=== PATIENT | female | born 1970 | race Caucasian/White ===

== ENCOUNTER 2016-04-14 18:09 | Emergency (ER) | payer OTHER ==
[2013-09-08 08:01] VITALS: BMI 24.1
[~2016-04-14 18:09] MED LIST: DEPAKOTE500 MG PO; HYDROCODONE-APA1 TAB PO
[2016-04-14 19:13] LABS: HEMATOCRIT 39.8 % (36.0-48.0); HEMOGLOBIN 13.4 g/dL (12-16); MCH 32.6 pg (26.0-34.0); MCHC 33.7 g/dL (31.0-37.0); MCV 96.8 fL (80.0-100.0); MEAN PLATELET VOLUME 10.8 fL (7.4-10.4); RBC 4.11 10x6/uL (4.00-5.40); RDW 12.9 % (11.5-14.5); WBC 4.5 10x3/uL (4.8-10.8)
[2016-04-14 19:15] LABS: PLATELET COUNT 181 10x3/uL (130-400)
[2016-04-14 19:40] LABS: LYMPHOCYTES 46 % (15-50); MONOCYTES 2 % (2-11); NEUTROPHILS 52 % (40-80); PLATELET ESTIMATE NORMAL
[2016-04-14 19:41] LABS: ALBUMIN 4.2 g/dL (3.4-5.0); ALKALINE PHOSPHATASE 45 U/L (46-116); ALT (SGPT) 17 U/L (10-68); BILIRUBIN - TOTAL 0.21 mg/dL (0.2-1.3); CALC OSMOLALITY 279 mosm/kg (275-300); CALCIUM 9.2 mg/dL (8.5-10.1); CHLORIDE - SERUM 103 mmol/L (98-107); CREATININE - SERUM 0.9 mg/dL (0.6-1.3); GLUCOSE 103 mg/dL (74-106); POTASSIUM - SERUM 3.8 mmol/L (3.5-5.1); PROTEIN - SERUM 7.3 g/dL (6.4-8.2); SODIUM 139 mmol/L (136-145); UREA NITROGEN 18 mg/dL (7-18); eGFR NON AFRICAN AMERICAN 72 mL/min (90-120)
[2016-04-14 19:46] LABS: CHOLESTEROL, TOTAL 291 mg/dL (0-200); CKMB 0.7 U/L (0.0-3.6); CREATINE KINASE 91 UL (21-215); HDL CHOLESTEROL 29 mg/dL (32-96)
[2016-04-14 19:48] LABS: TRIGLYCERIDE 563 mg/dL (30-200); TROPONIN-I < 0.017 ng/mL (0.000-0.060)
== END 2016-04-14 21:12 | disposition home or self-care (01) ==
LOC: D.ER 18:09
PROVIDERS: Emergency Medicine Emergency Medical Services
DX: R07.9 Chest pain, unspecified (principal); M79.661 Pain in right lower leg; Z86.79 Personal history of other diseases of the circulatory system; I10 Essential (primary) hypertension; K21.9 Gastro-esophageal reflux disease without esophagitis; F17.200 Nicotine dependence, unspecified, uncomplicated

== ENCOUNTER 2016-04-18 16:46 | Emergency (ER) | payer OTHER ==
[2013-09-08 08:01] VITALS: BMI 24.1
[2016-04-18 18:24] LABS: BASOPHILS 0.5 % (0.0-2.0); EOSINOPHILS 0.3 % (0-7); HEMATOCRIT 43.2 % (36.0-48.0); HEMOGLOBIN 14.9 g/dL (12-16); IMMATURE GRANULOCYTES 0.3 % (0-5); LYMPHOCYTES 24.1 % (15-50); MCH 32.5 pg (26.0-34.0); MCHC 34.5 g/dL (31.0-37.0); MCV 94.1 fL (80.0-100.0); MEAN PLATELET VOLUME 11.1 fL (7.4-10.4); MONOCYTES 18.2 % (2-11); NEUTROPHILS 56.6 % (40-80); PLATELET COUNT 157 10x3/uL (130-400); RBC 4.59 10x6/uL (4.00-5.40); RDW 12.6 % (11.5-14.5)
[2016-04-18 18:32] LABS: APPEARANCE CLEAR (CLEAR); BILIRUBIN NEGATIVE (NEGATIVE); COLOR YELLOW (YELLOW); GLUCOSE NEGATIVE (NEGATIVE); KETONE NEGATIVE (NEGATIVE); LEUKOCYTE ESTERASE NEGATIVE (NEGATIVE); NITRITE NEGATIVE (NEGATIVE); PROTEIN NEGATIVE (NEGATIVE); UROBILINOGEN NORMAL (NORMAL)
[2016-04-18 18:34] LABS: HCG URINE NEGATIVE (NEGATIVE)
[2016-04-18 18:37] LABS: ALBUMIN 4.7 g/dL (3.4-5.0); ANION GAP 14.5 mmol/L (8-16); BILIRUBIN - TOTAL 0.28 mg/dL (0.2-1.3); CALCIUM 9.5 mg/dL (8.5-10.1); CARBON DIOXIDE 27.5 mmol/L (21.0-32.0); CREATININE - SERUM 0.9 mg/dL (0.6-1.3); PROTEIN - SERUM 8.2 g/dL (6.4-8.2)
== END 2016-04-18 20:22 | disposition home or self-care (01) ==
LOC: D.ER 16:46
PROVIDERS: Emergency Medicine
DX: R10.9 Unspecified abdominal pain (principal); I10 Essential (primary) hypertension; K21.9 Gastro-esophageal reflux disease without esophagitis

== ENCOUNTER 2016-05-15 16:52 | Emergency (ER) | payer OTHER ==
[2013-09-08 08:01] VITALS: BMI 24.1
[2016-05-15 19:47] LABS: BASOPHILS 0.8 % (0.0-2.0); EOSINOPHILS 2.4 % (0-7); HEMATOCRIT 40.5 % (36.0-48.0); HEMOGLOBIN 13.8 g/dL (12-16); IMMATURE GRANULOCYTES 0.3 % (0-5); LYMPHOCYTES 21.1 % (15-50); MCH 32.5 pg (26.0-34.0); MCHC 34.1 g/dL (31.0-37.0); MCV 95.5 fL (80.0-100.0); MEAN PLATELET VOLUME 10.9 fL (7.4-10.4); MONOCYTES 19.5 % (2-11); NEUTROPHILS 55.9 % (40-80); PLATELET COUNT 136 10x3/uL (130-400); RBC 4.24 10x6/uL (4.00-5.40); RDW 12.5 % (11.5-14.5); WBC 3.7 10x3/uL (4.8-10.8)
[2016-05-15 20:01] LABS: ANION GAP 12.4 mmol/L (8-16); CALCIUM 9.1 mg/dL (8.5-10.1); CARBON DIOXIDE 27.4 mmol/L (21.0-32.0); POTASSIUM - SERUM 3.8 mmol/L (3.5-5.1)
== END 2016-05-15 21:00 | disposition home or self-care (01) ==
LOC: D.ER 16:52
PROVIDERS: Nurse Practitioner Acute Care
DX: J18.9 Pneumonia, unspecified organism (principal); R07.89 Other chest pain; I10 Essential (primary) hypertension; K21.9 Gastro-esophageal reflux disease without esophagitis; F17.200 Nicotine dependence, unspecified, uncomplicated

== ENCOUNTER → 2016-05-27 11:30 | Outpatient (CLI) | payer OTHER ==
[2013-09-08 08:01] VITALS: BMI 24.1
== END | disposition home or self-care (01) ==
LOC: D.RAD 11:30
DX: R07.81 Pleurodynia (principal)

== ENCOUNTER 2016-06-03 09:47 | Emergency (ER) | payer OTHER ==
[2013-09-08 08:01] VITALS: BMI 24.1
[2016-06-03 10:44] LABS: HEMATOCRIT 38.5 % (36.0-48.0); HEMOGLOBIN 13.6 g/dL (12-16); LYMPHOCYTES 20.8 % (15-50); MCH 32.9 pg (26.0-34.0); MCHC 35.3 g/dL (31.0-37.0); MCV 93.2 fL (80.0-100.0); MEAN PLATELET VOLUME 10.3 fL (7.4-10.4); NEUTROPHILS 54.9 % (40-80); RBC 4.13 10x6/uL (4.00-5.40); RDW 12.3 % (11.5-14.5); WBC 3.6 10x3/uL (4.8-10.8)
[2016-06-03 10:52] LABS: PLATELET COUNT 172 10x3/uL (130-400)
[2016-06-03 10:57] LABS: ALBUMIN 3.8 g/dL (3.4-5.0); ALKALINE PHOSPHATASE 48 U/L (46-116); ALT (SGPT) 13 U/L (10-68); BILIRUBIN - TOTAL 0.28 mg/dL (0.2-1.3); CALC OSMOLALITY 280 mosm/kg (275-300); CALCIUM 8.9 mg/dL (8.5-10.1); CARBON DIOXIDE 24.3 mmol/L (21.0-32.0); CHLORIDE - SERUM 106 mmol/L (98-107); CREATININE - SERUM 0.9 mg/dL (0.6-1.3); GLUCOSE 110 mg/dL (74-106); POTASSIUM - SERUM 4.1 mmol/L (3.5-5.1); SODIUM 141 mmol/L (136-145); UREA NITROGEN 10 mg/dL (7-18); eGFR NON AFRICAN AMERICAN 72 mL/min (90-120)
[2016-06-03 11:08] LABS: CKMB 1.1 U/L (0.0-3.6); CREATINE KINASE 96 UL (21-215); LIPASE 152 U/L (73-393)
[2016-06-03 11:10] LABS: TROPONIN-I < 0.017 ng/mL (0.000-0.060)
== END 2016-06-03 14:30 | disposition home or self-care (01) ==
LOC: D.ER 09:47
PROVIDERS: Emergency Medicine
DX: I71.4 Abdominal aortic aneurysm, without rupture (principal); S29.8XXA Other specified injuries of thorax, initial encounter; W19.XXXA Unspecified fall, initial encounter; R07.89 Other chest pain; Z72.0 Tobacco use; I10 Essential (primary) hypertension; K21.9 Gastro-esophageal reflux disease without esophagitis

== ENCOUNTER 2016-07-27 23:56 | Emergency (ER) | payer OTHER ==
[2013-09-08 08:01] VITALS: BMI 24.1
== END 2016-07-28 03:00 | disposition home or self-care (01) ==
LOC: D.ER 23:56
DX: G40.909 Epilepsy, unspecified, not intractable, without status epilepticus (principal); I10 Essential (primary) hypertension; K21.9 Gastro-esophageal reflux disease without esophagitis

== ENCOUNTER 2016-08-10 17:18 | Emergency (ER) | payer OTHER ==
[2013-09-08 08:01] VITALS: BMI 24.1
== END 2016-08-10 20:16 | disposition home or self-care (01) ==
LOC: D.ER 17:18
DX: S83.92XA Sprain of unspecified site of left knee, initial encounter (principal); X58.XXXA Exposure to other specified factors, initial encounter; K21.9 Gastro-esophageal reflux disease without esophagitis; I10 Essential (primary) hypertension; R56.9 Unspecified convulsions

== ENCOUNTER 2016-08-26 16:21 | Emergency (ER) | payer OTHER ==
[2013-09-08 08:01] VITALS: BMI 24.1
[2016-08-26 17:31] LABS: CALC OSMOLALITY 279 mosm/kg (275-300); CALCIUM 9.4 mg/dL (8.5-10.1); CARBON DIOXIDE 22.8 mmol/L (21.0-32.0); CHLORIDE - SERUM 104 mmol/L (98-107); CREATININE - SERUM 0.7 mg/dL (0.6-1.3); GLUCOSE 103 mg/dL (74-106); POTASSIUM - SERUM 3.7 mmol/L (3.5-5.1); SODIUM 141 mmol/L (136-145); TROPONIN-I < 0.017 ng/mL (0.000-0.060); UREA NITROGEN 9 mg/dL (7-18); eGFR NON AFRICAN AMERICAN > 90 mL/min (90-120)
[2016-08-26 17:47] LABS: BASOPHILS 0.2 % (0-2); EOSINOPHILS 0.4 % (0-7); HEMATOCRIT 45.3 % (36.0-48.0); HEMOGLOBIN 15.4 g/dL (12-16); IMMATURE GRANULOCYTES 0.2 % (0-5); LYMPHOCYTES 23.8 % (15-50); MEAN PLATELET VOLUME 10.9 fL (7.4-10.4); MONOCYTES 14.7 % (2-11); NEUTROPHILS 60.7 % (40-80); PLATELET COUNT 111 10x3/uL (130-400); RBC 4.67 10x6/uL (4.00-5.40); RDW 13.1 % (11.5-14.5); WBC 4.6 10x3/uL (4.8-10.8)
== END 2016-08-26 18:52 | disposition home or self-care (01) ==
LOC: D.ER 16:21
PROVIDERS: Emergency Medicine
DX: J20.9 Acute bronchitis, unspecified (principal); R07.81 Pleurodynia; I10 Essential (primary) hypertension; K21.9 Gastro-esophageal reflux disease without esophagitis; F17.200 Nicotine dependence, unspecified, uncomplicated

== ENCOUNTER → 2016-09-01 13:38 | Outpatient (CLI) | payer OTHER ==
[2013-09-08 08:01] VITALS: BMI 24.1
== END | disposition home or self-care (01) ==
LOC: D.RAD 13:38
DX: M54.2 Cervicalgia (principal); M47.812 Spondylosis without myelopathy or radiculopathy, cervical region; M54.5 Low back pain; M47.817 Spondylosis without myelopathy or radiculopathy, lumbosacral region; M47.897 Other spondylosis, lumbosacral region; M25.561 Pain in right knee; G89.4 Chronic pain syndrome; Z79.891 Long term (current) use of opiate analgesic

== ENCOUNTER 2016-12-03 08:39 | Emergency (ER) | payer OTHER ==
[2013-09-08 08:01] VITALS: BMI 24.1
[2016-12-03 09:04] LABS: BASOPHILS 0.5 % (0-2); EOSINOPHILS 0.3 % (0-7); HEMATOCRIT 41.5 % (36.0-48.0); HEMOGLOBIN 13.8 g/dL (12-16); IMMATURE GRANULOCYTES 0.3 % (0-5); MCH 31.6 pg (26.0-34.0); MCHC 33.3 g/dL (31.0-37.0); MEAN PLATELET VOLUME 10.7 fL (7.4-10.4); MONOCYTES 21.4 % (2-11); NEUTROPHILS 50.5 % (40-80); RBC 4.37 10x6/uL (4.00-5.40); RDW 13.1 % (11.5-14.5); WBC 3.9 10x3/uL (4.8-10.8)
[2016-12-03 09:09] LABS: PLATELET COUNT 157 10x3/uL (130-400)
[2016-12-03 09:31] LABS: ALBUMIN 4.2 g/dL (3.4-5.0); ALKALINE PHOSPHATASE 56 U/L (46-116); ALT (SGPT) 17 U/L (10-68); BILIRUBIN - TOTAL 0.29 mg/dL (0.2-1.3); CALC OSMOLALITY 283 mosm/kg (275-300); CALCIUM 9.2 mg/dL (8.5-10.1); CARBON DIOXIDE 27.3 mmol/L (21.0-32.0); CHLORIDE - SERUM 105 mmol/L (98-107); CREATININE - SERUM 0.8 mg/dL (0.6-1.3); GLUCOSE 100 mg/dL (74-106); PROTEIN - SERUM 7.6 g/dL (6.4-8.2); SODIUM 142 mmol/L (136-145); UREA NITROGEN 15 mg/dL (7-18); eGFR NON AFRICAN AMERICAN 82 mL/min (90-120)
[2016-12-03 09:42] LABS: CKMB 0.2 U/L (0.0-3.6); CREATINE KINASE 90 UL (21-215)
[2016-12-03 09:48] LABS: TROPONIN-I < 0.017 ng/mL (0.000-0.060)
== END 2016-12-03 14:11 | disposition home or self-care (01) ==
LOC: D.ER 08:39
PROVIDERS: Emergency Medicine
DX: R07.9 Chest pain, unspecified (principal); I70.1 Atherosclerosis of renal artery; I10 Essential (primary) hypertension; K21.9 Gastro-esophageal reflux disease without esophagitis; F17.200 Nicotine dependence, unspecified, uncomplicated

== ENCOUNTER 2017-01-09 22:10 | Emergency (ER) | payer OTHER ==
[2013-09-08 08:01] VITALS: BMI 24.1
[2017-02-05 11:38] VITALS: BMI 25.0
== END 2017-01-10 02:38 | disposition home or self-care (01) ==
LOC: D.ER 22:10
DX: G43.909 Migraine, unspecified, not intractable, without status migrainosus (principal); I10 Essential (primary) hypertension; K21.9 Gastro-esophageal reflux disease without esophagitis

== ENCOUNTER 2017-01-14 12:54 | Emergency (ER) | payer OTHER ==
[2013-09-08 08:01] VITALS: BMI 24.1
[2017-01-14 14:41] LABS: CKMB 0.5 U/L (0.0-3.6); CREATINE KINASE 88 UL (21-215)
[2017-01-14 14:58] LABS: TROPONIN-I < 0.017 ng/mL (0.000-0.060)
== END 2017-01-14 15:30 | disposition home or self-care (01) ==
LOC: D.ER 12:54
PROVIDERS: Emergency Medicine
DX: R07.9 Chest pain, unspecified (principal); F17.200 Nicotine dependence, unspecified, uncomplicated; K21.9 Gastro-esophageal reflux disease without esophagitis

== ENCOUNTER 2017-02-03 07:48 | Day surgery (SDC) | payer OTHER ==
[~2017-02-03] VITALS: Ht 165.1 cm; Wt 68.0 kg
[2017-02-03] MEDS ORDERED: TOPROL XL25 MG PO (08:14)
[2017-02-03] MEDS ORDERED: REQUIP4 MG PO (08:15)
[2017-02-03] MEDS ORDERED: ZANTAC150 MG PO (08:16)
[2017-02-03] MEDS ORDERED: PROTONIX40 MG PO (08:16)
[2017-02-03] MEDS ORDERED: ZOFRAN4 MG PO (08:17)
[2017-02-03] MEDS ORDERED: AUGMENTIN 500-11 TA1 PO (08:18)
[2017-02-03] MEDS ORDERED: LIPITOR20 MG PO (08:19)
[2017-02-03] MEDS ORDERED: BAYER CHEWABLE81 MG PO (08:19)
[2017-02-03] MEDS ORDERED: ZANAFLEX4 MG PO (08:20)
[2017-02-03 08:30] VITALS: BP 118/77; Ht 165.1 cm; Wt 68.0 kg
[2017-02-03 10:44] LABS: HEMATOCRIT 34.4 % (36.0-48.0); HEMOGLOBIN 11.3 g/dL (12-16); MCH 30.1 pg (26.0-34.0); MCHC 32.8 g/dL (31.0-37.0); MCV 91.5 fL (80.0-100.0); MEAN PLATELET VOLUME 10.8 fL (7.4-10.4); RBC 3.76 10x6/uL (4.00-5.40); RDW 13.8 % (11.5-14.5); WBC 4.4 10x3/uL (4.8-10.8)
[2017-02-03] MEDS ORDERED: HYDROCODONE-APA1 TAB PO (11:26)
--- NOTE | 2017-02-03 12:00 | NUR ---
1155 - REMOVED 25MG DEMEROL FOR SHAKING, PT CHART SHOWS DEMEROL ALLERGY. FULL 25MG WASTED IN SHARPS, WITNESSED BY ALFRED URRUTIA RN. ATTEMPTED TO DOCUMENT WASTAGE IN PYXIS, WAS ABLE TO CREDIT PT FOR ENTIRE DRUG, BUT WERE NOT ABLE TO DOCUMENT WASTAGE.
--- NOTE | 2017-02-03 12:19 | OP ---
PATIENT NAME: JOSIAS TEE MEDICAL RECORD: [id number] :72 LOCATION:D.OPS ADMISSION DATE: SURGEON: JS BOSCH MD DATE OF OPERATION: 02/03/2017 DATE OF OPERATION: 02/03/2017 PREOPERATIVE DIAGNOSES: 1. Poor venous access. 2. Coronary artery disease. 3. Peripheral vascular disease. 4. Hypertension. 5. Hypercholesterolemia. 6. History of AAA. 7. Tobacco dependence syndrome. POSTOPERATIVE DIAGNOSES: 1. Poor venous access. 2. Coronary artery disease. 3. Peripheral vascular disease. 4. Hypertension. 5. Hypercholesterolemia. 6. History of AAA. 7. Tobacco dependence syndrome. PROCEDURE: Left subclavian vein PowerPort placement with fluoroscopic interpretation. SURGEON: Js Bosch MD REPORT OF PROCEDURE: The patient's left chest was prepped and draped in sterile fashion. A 20 mL of 1% lidocaine with epinephrine was infused into the surrounding tissues. A needle was used to cannulate the left subclavian vein. The guidewire was advanced with ease. Fluoro was used to note that the wire was in good position in the venous system. The skin incision was made on the left superior lateral chest and a subcutaneous pouch was made over the pectoral fascia. The catheter was tunneled between this pouch and the wire exit site. The port was then sutured to the pectoral fascia using interrupted 2-0 Prolenes times 2. The catheter was cut with a beveled tip at 20 cm. The dilator trocar device was placed over the wire and the wire and dilator were removed. The catheter tip was advanced through the trocar and the trocar was removed. The catheter tip rested in good position in the superior vena cava. The catheter aspirated nonpulsatile dark blood and flushed easily with heparinized saline. The subcutaneous tissues were reapproximated with interrupted 3-0 Vicryl and the skin was closed with running subcutaneous 5-0 Monocryl. The wounds were then dressed appropriately. COMPLICATIONS: None. CONDITION: Stable. ANESTHESIA: TIVA and local. BLOOD LOSS: Minimal. OPERATIVE REPORT [id number] JOSIAS TEE TRANSINT:[id number] Voice Confirmation ID: [id number] DOCUMENT ID: [id number] JS BOSCH MD at 1219 CC: LAWRENCE RIDER DO and JOHNNA GAGE MD [id number] DICTATION DATE: 02/03/17 1134 CHIEF OPERATING ENGINEER: 02/03/17 1148 [facility] [address] [place] [address]
--- NOTE | 2017-02-03 13:40 | NUR ---
WHILE REVIEWING DISCHARGE INSTRUCTIONS, PATIENT REPORTS SOME NUMBNESS IN LEFT THUMB AND INTO LEFT FOREARM. CAP REFILL < 3 SECONDS, RADIAL PULSE STRONG AND REGULAR. PATIENT STATES THAT IT HAD NOT FELT LIKE THIS UNTIL NOW. DR BOSCH PAGED
--- NOTE | 2017-02-03 13:44 | NUR ---
DR BOSCH CALLS BACK, REPORT GIVEN TO DR BOSCH ABOUT PATIENT'S NUMBNESS IN LEFT FOREARM. DR BOSCH STATES "I HAD TO GIVE HER MORE LIDOCAINE THAN USUAL WHILE DOING THE PROCEDURE SO THAT WOULD BE EXPECTED." PATIENT INSTRUCTED OF DR BOSCH'S EXPLANATION
--- NOTE | 2017-02-03 13:50 | NUR ---
DISCHARGE INSTRUCTIONS REVIEWED WITH PATIENT. DISCHARGED HOME VIA WHEELCHAIR TO PRIVATE VEHICLE WITH FAMILY
== END 2017-02-03 13:50 | disposition home or self-care (01) ==
LOC: D.OPS 07:48 → D.PAN 10:15 → D.OPS 10:15
PROVIDERS: Anesthesiology
DX: I87.2 Venous insufficiency (chronic) (peripheral) (principal); I25.10 Atherosclerotic heart disease of native coronary artery without angina pectoris; I73.9 Peripheral vascular disease, unspecified; I10 Essential (primary) hypertension; E78.00 Pure hypercholesterolemia, unspecified; I71.4 Abdominal aortic aneurysm, without rupture; F17.200 Nicotine dependence, unspecified, uncomplicated; Z01.812 Encounter for preprocedural laboratory examination

== ENCOUNTER 2017-02-05 11:10 | Outpatient (CLI) | payer OTHER ==
[~2017-02-05] VITALS: Ht 165.1 cm; Wt 68.2 kg
--- NOTE | ~2017-02-05 | HEMODYNAMI ---
PATIENT:JOSIAS TEE MEDICAL RECORD: [id number] : 72 LOCATION:DANDREA ADMISSION DATE: 02/05/17 Generatedon:02/05/201714:27 Patient name: JOSIAS TEE Patient #: [id number] SSN: DO B: 1970 Date of study: 02/05/2017 Page: Of Hemodynamic Procedure Report Patient Data Patient Demographics Procedure consent was obtained First Name: JOSIAS Gender: Female Last Name: RANDAL : 1970 Middle Initial: M Age: 46 year(s) Patient #: [id number] Race: Unknown Additional ID: [id number] Contact details [address]: [address] [address] State: [place] City: [place] Zip code: [address] Past Medical History Allergies Allergen Reaction Date Comments Reported Other allergy 02/05/2017 ZOLOFT, DEMEROL, MORPHINE Admission Admission Data Admission Date: 02/05/2017 Admission Time: 11:10 Height (in.): 5.5 BSA: 0.29 (m2) Height (cm.): 13.97 BMI: 3486.3 (kg/m2) Weight (lbs.): 150 Weight (kg.): 68.04 Lab Results Lab Result Date: 02/05/2017 Lab Result Time: 0:00 Biochemistry Name Units Result Min Max BUN mg/dl 9 --(*---)-- 7 18 Creatinine mg/dl 0.7 --(*---)-- 0.6 1.3 CBC Name Units Result Min Max Hemoglobin g/dl 11.6 *-(----)-- 13.5 17.5 Procedure Procedure Types Cath Procedure Diagnostic Procedure C [facility] w/Coronaries Miscellaneous Procedures Moderate Sedation up to 15 minutes Peripheral Cath Diagnostic Procedure Cath Peripheral Mvkjt-Rbtsoyh-Ofs-Off Procedure Description Procedure Date Procedure Date: 02/05/2017 Procedure Start Time: 14:11 Procedure End Time: 14:26 Procedure Staff Name Function Ric Chan MD Performing Physician Ruby VEGA Scrub Joann Maguire RT Monitor Grayson Roldan RN Nurse Roxanne Dickerson RN Nurse Angella Bowles RT Monitor Procedure Data Cath Procedure Fluoroscopy Diagnostic fluoroscopy Total fluoroscopy Time: 1.4 time: 1.4 min min Diagnostic fluoroscopy Total fluoroscopy dose: 264 dose: 264 mGy mGy Contrast Material Contrast Material Type Amount (ml) Isovue 300 109 Entry Location Entry Primary Successful Side Size Upsize Upsize Entry Closure Succes sful Closure Location (Fr) 1 (Fr) 2 (Fr) Remarks Device Remarks Femoral Right 5 Fr Exoseal artery Estimated blood loss: 10 ml Diagnostic catheters Device Type Used For End Catheter Placement MULTIPACK JL 4.0 5Fr Procedure catheter MULTIPACK 3DRC 5Fr Procedure catheter MULTIPACK Pigtail 5 Fr Procedure catheter Procedure Complications No complications Procedure Medications Medication Administration Route Dosage 0.9% NaCl I.V. 100 ml/hr Oxygen NC 2 l/min Lidocaine 2% added to field 20 Heparin Flush Bag added to field 2 bags (1000units/500ml NS) Versed I.V. 1 mg Fentanyl I.V. 50 mcg Fentanyl I.V. 50 mcg Versed I.V. 1 mg Fentanyl I.V. 50 mcg Fentanyl I.V. 50 mcg Hemodynamics Rest BSA: 0.29 (m2) HGB: 11.6 (g/dl) O2 Consumption: Estimated: 27.11 (ml/min) O2 Con sumption indexed: Estimated:93.48 (ml/min/m) Heart Rate: 54 (bpm) Pressure Samples Time Site Value (mmHg) Purpose Heart Use Rate(bpm) 14:17 AO 141/82(108) Pullback 63 14:17 LV 136/19,34 Pullback 63 Gradients Valve Time Site 1 Site 2 Mean SEP/DFP Peak To Heart Use (mmHg) (sec/min) Peak Rate (mmHg) (bpm) Aortic 14:17 LV AO 0 9 0 63 136/19,34 141/82(108) Calculations Valve P-P Mean Valve Index Valve Source Name Gradient Area Flow (cm2) Aortic 0 0 0 0 Snapshots Pre Cath Intra NCS Post Cath Vital Signs Time Heart Resp SPO2 NIBP Rhythm Pain Sedation Rate (ipm) (%) (mmHg) Status Level (bpm) 13:57:27 71 17 114/74(88) NSR 0 (11) 10(A) , No pain 14:01:33 48 29 100 117/69(99) NSR 0 (11) 10(A) , No pain 14:05:43 55 21 99 113/65(83) NSR 0 (11) 10(A) , No pain 14:09:51 58 17 99 117/62(85) NSR 0 (11) 9(A) , No pain 14:13:59 60 14 100 111/65(87) NSR 0 (11) 9(A) , No pain 14:18:09 64 14 100 105/53(82) NSR 0 (11) 9(A) , No pain 14:22:18 68 14 98 87/48(66) NSR 0 (11) 10(A) , No pain 14:26:20 64 10 99 97/49(76) NSR 0 (11) 10(A) , No pain Medications Time Medication Route Dose Verified Delivered Reason Notes E ffectiveness by by 14:03:54 0.9% NaCl I.V. 100ml/hr Ric Oliveira used for [facility] taker off 14:04:03 Oxygen NC 2 l/min Ric Oliveira Per [facility] RN physician 14:04:11 Lidocaine 2% added 20ml Ric Larios for local to vial [facility] anesthetic field MD KIRBY 14:04:21 Heparin Flush added 2 bags Ric Larios used for Bag to [facility] procedure (1000units/500ml field MD KIRBY NS) 14:04:29 Versed I.V. 1 mg Ric Oliveira for [facility] RN sedation 14:04:36 Fentanyl I.V. 50 mcg Ric Roxanne for [facility] RN sedation 14:11:01 Fentanyl I.V. 50 mcg Ric Roxanne for [facility] RN sedation 14:11:07 Versed I.V. 1 mg Ric Roxanne for [place] Dick[place] RN sedation 14:16:01 Fentanyl I.V. 50 mcg Ric Roxanne for [facility] RN sedation 14:17:46 Fentanyl I.V. 50 mcg Ric Roxanne for [facility] RN sedation Procedure Log Time Note 13:45:42 Ruby Alegria RT(R) sent for patient. Start room use. 13:45:43 Time tracking: Regular hours 13:45:47 Plan of Care:Hemodynamics will remain stable., Cardiac rhythm will remain stable., Comfort level will be maintained., Respiratory function will remain adequate., Patient/ family verbilizes understanding of procedure., Procedure tolerated without complication., Recovers from procedure without complications.. 13:46:56 Patient Height : 5.5 inches 13:47:01 Patient Weight : 150 lbs 13:49:13 Patient received from Pre/Post Procedure Room to CCL 1 Alert and oriented. Tansferred to table in Supine position. 13:49:14 Warm blankets applied, and laya hugger turned on for patient comfort. 13:49:15 Correct patient and procedure confirmed by team. 13:49:16 Signed procedure consent form obtained from patient. 13:49:17 ECG and BP/O2 sat monitors applied to patient. 13:56:28 Vital chart was started 13:58:06 Baseline sample Acquired. 13:58:12 Rhythm: sinus bradycardia 13:58:14 Full Disclosure recording started 13:58:23 H&P Date Dictated: 01/29/2017 Within 30 days and on chart., H&P Addendum completed by physician on day of procedure. (MUST COMPLETE FOR ALL OUTPATIENTS). 13:58:24 Pre-procedure instructions explained to patient. 13:58:25 Pre-op teaching completed and patient verbalized understanding. 13:58:27 Family in patients room. 13:58:30 Patient NPO since Midnight. 13:58:58 Patient allergic to Other allergyZOLOFT, DEMEROL, MORPHINE 13:59:00 Is the patient allergic to Iodine/contrast media? No. 13:59:08 Patient diabetic? No. 13:59:10 Patient not . Patient has had tubal. 13:59:16 Previous problem with sedation/anesthesia? No ? 13:59:17 Snore? No 13:59:18 Sleep apnea? No 13:59:20 Deviated septum? No 13:59:21 Opens mouth fully? Yes 13:59:23 Sticks out tongue? Yes 13:59:27 Airway obstruction? Yes COPD 13:59:31 Dentures? Yes IN TIGHT 13:59:37 Pre procedure: right dorsailis pedis pulse 2+ Normal; easily identifiable; not easily obliterated 13:59:40 Patient pain scale 0/10 ?. 13:59:47 IV patent on arrival in port with 0.9% NaCl at O. 14:02:00 Lab Result : BUN 9 mg/dl 14:02:00 Lab Result : Creatinine 0.7 mg/dl 14:02:00 Lab Result : Hemoglobin 11.6 g/dl 14:02:04 Lab results completed and on chart. 14:02:16 Bilateral groins area was prepped with chlora-prep and draped in sterile fashion 14:02:18 Alarms reviewed by R. N. 14:02:18 Sharps counted by scrub and verified by R.N. 14:02:53 --------ALL STOP TIME OUT------ 14:02:54 Final Timeout: patient, procedure, and site verified with staff and physician. All members of the team are in agreement. 14:02:56 Bilateral groins site verified by team. 14:02:58 Physical assessment completed. ASA score P 2 - A patient with mild systemic disease as per Ric Chan MD. 14:03:02 Sedation plan: IV Moderate Sedation Medication:Versed, Fentanyl 14:03:54 0.9% NaCl 100ml/hr I.V. was administered by Roxanne Dickerson RN; used for procedure; 14:04:03 Oxygen 2 l/min NC was administered by Roxanne Dickerson RN; Per physician; 14:04:11 Lidocaine 2% 20ml vial added to field was administered by Ric Chan MD; for local anesthetic; 14:04:21 Heparin Flush Bag (1000units/500ml NS) 2 bags added to field was administered by Ric Chan MD; used for procedure; 14:04:29 Versed 1 mg I.V. was administered by Roxanne Dickerson RN; for sedation; 14:04:36 Fentanyl 50 mcg I.V. was administered by Roxanne Dickerson RN; for sedation; 14:05:10 Use device set Femoral Dx 14:05:13 ACIST Syringe (25621) opened to sterile field. 14:05:13 Bag Decanter () opened to sterile field. 14:05:16 Tegaderm 4 x 4 (1626W) opened to sterile field. 14:05:17 ACIST Manifold (43012) opened to sterile field. 14:05:17 ACIST Hand Control (59132) opened to sterile field. 14:05:20 Medline Cath Pack ([id number]) opened to sterile field. 14:05:21 SHEATH 5FR [place] (BZI222) opened to sterile field. 14:05:22 DIAGNOSTIC WIRE .035 260cm J wire (339270) opened to sterile field. 14:05:24 DIAGNOSTIC Multipack 5Fr catheter set ([id number]) opened to sterile field. 14:07:05 Zero performed for pressure channel P1 14:10:41 Procedure started. 14:11:01 Fentanyl 50 mcg I.V. was administered by Roxanne Dickerson RN; for sedation; 14:11:07 Versed 1 mg I.V. was administered by Roxanne Dickerson RN; for sedation; 14:11:17 Local anesthetic to right femoral artery with Lidocaine 2% by Ric Chan MD.INITIAL ACCESS ONLY 14:12:29 A 5 Fr sheath was inserted into the Right Femoral artery 14:13:14 A MULTIPACK JL 4.0 5Fr catheter was advanced over the wire and used for Procedure. 14:13:49 LCA angiography performed. 14:14:24 Catheter removed. 14:14:42 A MULTIPACK 3DRC 5Fr catheter was advanced over the wire and used for Procedure. 14:15:18 RCA angiography performed. 14:15:36 Catheter removed. 14:15:41 Zero performed for pressure channel P1 14:16:01 Fentanyl 50 mcg I.V. was administered by Roxanne Dickerson RN; for sedation; 14:16:11 A MULTIPACK Pigtail 5 Fr catheter was advanced over the wire and used for Procedure. 14:16:40 LV gram done using WOODS 14:16:42 LV hemodynamics recorded. 14:16:45 Injector settings: Ml/sec: 10, Volume: 20, 14:17:33 EF : 55 % 14:17:46 Fentanyl 50 mcg I.V. was administered by Roxanne Dickerson RN; for sedation; 14:18:17 Pigtail used for AFRO 14:18:21 Abdominal angiogram w/ runoff was performed. 14:18:28 Left leg runoff performed. 14:18:57 Right leg runoff performed. 14:19:17 Catheter removed. 14:19:33 EXOSEAL 5Fr (EX500) opened to sterile field. 14:19:43 Sheath removed intact; hemostasis achieved with Exoseal to the Right Femoral artery. 14:19:45 Procedure ended.(Physican Out) 14:19:54 Fluoroscopy time 01.40 minutes. 14:19:59 Fluoroscopy dose: 264 mGy 14:19:59 Flurop Dose total: 264 14:20:03 Contrast amount:Isovue 300 109ml. 14:20:05 Sharps counted by scrub and verified by R.N. 14:20:43 Insertion/operative site no bleeding no hematoma. 14:20:47 Post-op/insertion site Right Femoral artery dressed using a 4 x 4 and Tegaderm. 14:20:52 Post-procedure physical assessment completed. ASA score P 2 - A patient with mild systemic disease as per Ric Chan MD. 14:21:17 Post procedure rhythm: sinus rhythm 14:21:26 Estimated blood loss: 10 ml 14:21:27 Post procedure instruction explained to patient.Patient verbalizes understanding. 14:21:28 Patient needs reinforcement of post procedure teaching. 14:22:22 Procedure and supply charges have been captured, reviewed, submitted and are correct. 14:22:26 Procedure Complication : No complications 14:26:14 Vital chart was stopped 14:26:14 See physician's report for complete and final results. 14:26:16 Report given to Pre/Post Procedure Room. 14:26:20 Patient transfered to Pre/Post Procedure Room with Bed. 14:26:24 Procedure ended. 14:26:24 Full Disclosure recording stopped 14:26:28 End room use (Document Last) Device Usage Item Name Manufacture Quantity Catalog Hospital Part Current Minimal L ot# / Number Charge Number Stock Stock Serial# Code ACIST Acist 1 72108 [id number] 109155 814518 20 Syringe Medical (50367) Systems Inc Bag Microtek 1 2001S 452906 31525 531626 5 Decanter Medical Inc. () Tegaderm 4 3M 1 1626W 007027 424261 335280 5 x 4 (1626W) ACIST Acist 1 72158 369764 064619 459859 5 Manifold Medical (03578) Systems Inc ACIST Hand Acist 1 75175 950129 589649 763592 5 Control Medical (05841) Systems Inc Medline Cardinal 1 [id number] 724057 27463 334303 5 Cath Pack Health ([id number]) SHEATH 5FR Terumo 1 QWZ356 440424 286766 333300 40 [place] (OKI504) DIAGNOSTIC St Shay 1 598267 948525 512795 047878 30 WIRE .035 260cm J wire (200546) DIAGNOSTIC Cardinal 1 IH9332 424016 17608 551436 30 Multipack Health 5Fr catheter set (LM6238) MULTIPACK Cardinal 1 115105 5 JL 4.0 5Fr Health catheter MULTIPACK Cardinal 1 939052 5 3DRC 5Fr Health catheter MULTIPACK Cardinal 1 345875 5 Pigtail 5 Health Fr catheter EXOSEAL 5Fr Cardinal 1 EX500 805044 540232 311564 10 (EX500) Health Signature Audit [place] Stage Time Signature Unsigned Intra-Procedure 02/05/2017 Angella Bowles 2:27:01 PM RT(R) Signatures Monitor : Joann Maguire Signature : RT Date : Time : Monitor : Angella Bowles Signature : RT Date : Time : [address] [place] [address]
[~2017-02-05 11:10] MED LIST changes: +AUGMENTIN 500-11 TA1 PO; +BAYER CHEWABLE81 MG PO; +LIPITOR20 MG PO; +PROTONIX40 MG PO; +REQUIP4 MG PO; +TOPROL XL25 MG PO; +ZANAFLEX4 MG PO; +ZANTAC150 MG PO; +ZOFRAN4 MG PO
[2017-02-05 11:38] VITALS: BP 116/64; Ht 165.1 cm; Wt 68.2 kg
[2017-02-05 11:53] LABS: BASOPHILS 0.5 % (0-2); EOSINOPHILS 0 % (0-7); HEMATOCRIT 34.9 % (36.0-48.0); HEMOGLOBIN 11.6 g/dL (12-16); LYMPHOCYTES 34.1 % (15-50); MCH 30.3 pg (26.0-34.0); MCHC 33.2 g/dL (31.0-37.0); MCV 91.1 fL (80.0-100.0); MEAN PLATELET VOLUME 10.3 fL (7.4-10.4); MONOCYTES 27.3 % (2-11); NEUTROPHILS 38.1 % (40-80); PLATELET COUNT 116 10x3/uL (130-400); RBC 3.83 10x6/uL (4.00-5.40); RDW 13.5 % (11.5-14.5); WBC 3.8 10x3/uL (4.8-10.8)
[2017-02-05 12:16] LABS: CALC OSMOLALITY 274 mosm/kg (275-300); CALCIUM 8.6 mg/dL (8.5-10.1); CARBON DIOXIDE 26.2 mmol/L (21.0-32.0); CHLORIDE - SERUM 104 mmol/L (98-107); CREATININE - SERUM 0.7 mg/dL (0.6-1.3); GLUCOSE 99 mg/dL (74-106); SODIUM 138 mmol/L (136-145); UREA NITROGEN 9 mg/dL (7-18); eGFR NON AFRICAN AMERICAN > 90 mL/min (90-120)
--- NOTE | 2017-02-05 14:50 | NUR ---
ROOM AIR, NO RESP DISTRESS. RIGHT GROIN 5F EXOSEAL CDI, NO BLEEDING OR HEMATOMA NOTED. VSS. NO C/O PAIN OR NAUSEA. FAMILY AT BEDSIDE, CALL LIGHT WITHIN REACH.
--- NOTE | 2017-02-05 15:20 | NUR ---
RIGHT GROIN 5F EXOSEAL CDI, NO BLEEDING OR HEMATOMA NOTED. ROOM AIR, NO RESP DISTRESS. NO C/O PAIN OR NAUSEA. VSS. FAMILY AT BEDSIDE. WILL CONTINUE TO MONITOR CLOSELY.
--- NOTE | 2017-02-05 16:01 | NUR ---
HOB ELEVATED 30 DEGREES. DRINK AND SANDWICH TRAY GIVEN. NO C/O NAUSEA OR PAIN. VSS. WILL CONTINUE TO MONITOR.
--- NOTE | 2017-02-05 16:15 | NUR ---
LEFT CHEST PORT NEEDLE REMOVED, BAND AID TO SITE. UP TO BEDSIDE TO GET DRESSED.
--- NOTE | 2017-02-05 16:22 | NUR ---
AMBULATED TO RESTROOM TO VOID.
--- NOTE | 2017-02-05 16:28 | NUR ---
DISCHARGE INSTRUCTIONS GIVEN, VERBALIZED UNDERSTANDING.
--- NOTE | 2017-02-05 16:35 | NUR ---
TAKEN OUT VIA WHEELCHAIR BY CATH METAL TESTER. LEFT FACILITY WITH FAMILY AND ALL PERSONAL BELONGINGS.
--- NOTE | 2017-02-11 12:19 | OP ---
PATIENT NAME: JOSIAS TEE MEDICAL RECORD: [id number] :72 LOCATION:D.CAT ADMISSION DATE: SURGEON: JOHNNA GAGE MD DATE OF OPERATION: 02/05/2017 PROCEDURE: Left heart catheterization, selective coronary angiography, as well as aortofemoral runoff performed via right femoral approach. CATHETERS: A 5-Sudanese sheath, 5/4 left and right Karina, 5/4 pig. The procedure was well tolerated and the patient returned to the bangura, sheath removed. ExoSeal device was placed. FINDINGS: Left ventriculography in the 30-degree [place] view: Normal wall motion, normal systolic function. CORONARY ANATOMY: 1. Left main: Left main is free of disease. 2. LAD: Free of disease in the diagonal system. 3. Circumflex: Free of disease in the marginal system. 4. Right coronary artery: Dominant artery, gives rise to PDA, free of disease. At the end of the procedure, the catheter was pulled. Abdominal aortic runoff was performed. FINDINGS: Abdominal aorta shows no evidence of aneurysmal dilatation. RIGHT SYSTEM: Right iliac systems smooth-walled, free of disease. Right deep superficial and common femoral artery are free of disease with good two-vessel runoff distally. LEFT SYSTEM: Left iliac system is small vessel, free of disease. Left superficial common deep femoral system overall free of disease with good two-vessel runoff distally. IMPRESSION: Normal left ventricular systolic function, normal coronary anatomy. TRANSINT:[id number] Voice Confirmation ID: [id number] DOCUMENT ID: [id number] JOHNNA GAGE MD at 1219 CC: [id number] DICTATION DATE: 02/05/17 1434 CATTLE RANCHER: 02/05/17 1546 DEP CLI 02/05/17 [place] [id number] [place] [id number]
== END 2017-02-05 16:35 | disposition home or self-care (01) ==
LOC: D.CATH 11:10
PROVIDERS: Internal Medicine Interventional Cardiology
DX: I20.9 Angina pectoris, unspecified (principal); I73.9 Peripheral vascular disease, unspecified; Z01.812 Encounter for preprocedural laboratory examination

== ENCOUNTER → 2017-08-14 15:55 | Outpatient (CLI) | payer OTHER ==
[2017-02-05 11:38] VITALS: BMI 25.0
== END | disposition home or self-care (01) ==
LOC: D.US 15:55
DX: R79.1 Abnormal coagulation profile (principal)

== ENCOUNTER → 2017-11-26 10:13 | Outpatient (CLI) | payer OTHER ==
[2017-02-05 11:38] VITALS: BMI 25.0
[2017-11-27 10:19] LABS: IMMUNOGLOBULIN A 100 mg/dL (87-352); IMMUNOGLOBULIN G 762 mg/dL (700-1600); IMMUNOGLOBULIN M 58 mg/dL (26-217)
[2017-11-30 16:11] LABS: IMMUNOGLOBULIN E 2 IU/mL (0-100)
== END | disposition home or self-care (01) ==
LOC: D.RT 10:00
PROVIDERS: Internal Medicine Pulmonary Disease
DX: R06.09 Other forms of dyspnea (principal)

== ENCOUNTER 2019-09-14 17:26 | Observation (INO) | payer MEDICARE, MEDICAID ==
[~2019-09-14] VITALS: Ht 165.1 cm; Wt 62.6 kg
--- NOTE | ~2019-09-14 | HEMODYNAMI ---
PATIENT:JOSIAS TEE MEDICAL RECORD: [id number] : 72 [id number] ADMISSION DATE: 09/15/19 Generatedon:09/15/201912:27 Patient name: JOSIAS TEE Patient #: [id number] SSN: [id number] : 1970 Date of study: 09/15/2019 Page: Of Hemodynamic Procedure Report Patient Data Patient Demographics Procedure consent was obtained First Name: JOSIAS Gender: Female Last Name: RANDAL : 1970 Middle Initial: M Age: 49 year(s) Patient #: [id number] Race: Unknown SSN: [id number] Additional ID: [id number] Contact details [address]: [address] [place] [address] State: [place] City: [place] Zip code: [address] Past Medical History Allergies Allergen Reaction Date Comments Reported Other allergy 02/05/2017 ZOLOFT, DEMEROL, MORPHINE Other allergy 09/15/2019 Xoloft, Flu, Morphine Admission Admission Data Admission Date: 09/15/2019 Admission Time: 9:24 Arrival Date: 09/15/2019 Arrival Time: 0:00 Admit Source: Other Insurance Payor: Medicare Room #: D.2114 [facility] #: [id number] Height (in.): 64.96 BSA: 1.68 (m2) Height (cm.): 165 BMI: 22.77 (kg/m2) Weight (lbs.): 136.69 Weight (kg.): 62 Lab Results Lab Result Date: 09/15/2019 Lab Result Time: 0:00 Biochemistry Name Units Result Min Max BUN mg/dl 10 --(-*--)-- 7 18 Creatinine mg/dl 1 --(--*-)-- 0.6 1.3 eGFR ml/min 63 *-(----)-- 90 120 NONAFRICAN CBC Name Units Result Min Max Hemoglobin g/dl 11.6 *-(----)-- 13.5 17.5 Procedure Procedure Types Cath Procedure Diagnostic Procedure [facility] w/Coronaries Sedation Charges Moderate Sedation up to 15 minutes Procedure Description Procedure Date Procedure Date: 09/15/2019 Procedure Start Time: 12:09 Procedure End Time: 12:25 Procedure Staff Name Function Kinza Morris MD Performing Physician Joann Maguire RT Monitor James Moncada RN Nurse Daphney Bourgeois RT Scrub Indication Chest pain Procedure Data Cath Procedure Fluoroscopy Diagnostic fluoroscopy Total fluoroscopy Time: 1.2 time: 1.2 min min Diagnostic fluoroscopy Total fluoroscopy dose: 137 dose: 137 mGy mGy Contrast Material Contrast Material Type Amount (ml) Isovue 300 20 Entry Location Entry Primary Successful Side Size Upsize Upsize Entry Closure May ccessful Closure Location (Fr) 1 (Fr) 2 (Fr) Remarks Device Remarks Radial Right 6 Fr Mechanical artery Short Compression Estimated blood loss: 10 ml Diagnostic catheters Device Type Used For End Catheter Placement DIAGNOSTIC Chitina 110cm 5 Procedure Fr catheter ([id number]) Procedure Complications No complications Procedure Medications Medication Administration Route Dosage 0.9% NaCl I.V. 100 ml/hr Oxygen etCO2 Nasal cannula 2 l/min Heparin Flush Bag added to field 2 bags (1000units/500ml NS) Lidocaine 2% added to field 20 Radial Cocktail added to field 1 syringe (Verapamil 2mg/Nitro 400mcg/Heparin 1500units) Benadryl I.V. 50 mg Plavix P.O. 300 mg Ativan I.V. 0.5 mg Radial Cocktail I.A. 1 syringe (Verapamil 2mg/Nitro 400mcg/Heparin 1500units) Hemodynamics Rest BSA: 1.68 (m2) HGB: 11.6 (g/dl) O2 Consumption: Estimated: 156.57 (ml/min) O2 Co nsumption indexed: Estimated:93.2 (ml/min/m) Heart Rate: 56 (bpm) Pressure Samples Time Site Value (mmHg) Purpose Heart Use Rate(bpm) 12:19 LV 119/-10,15 Snapshot 67 12:20 AO 105/69(86) Pullback 71 12:20 LV 106/14,16 Pullback 71 Gradients Valve Time Site 1 Site 2 Mean SEP/DFP Peak To Heart Use (mmHg) (sec/min) Peak Rate (mmHg) (bpm) Aortic 12:20 LV AO 1 71 106/14,16 105/69(86) Calculations Valve P-P Mean Valve Index Valve Source Name Gradient Area Flow (cm2) Aortic 1 1 Snapshots Pre Cath Intra NCS Post Cath Vital Signs Time Heart Resp SPO2 etCO2 NIBP (mmHg) Rhythm Pain Sedation Rate (ipm) (%) (mmHg) Status Level (bpm) 11:57:29 57 15 100 37.6 128/77(92) NSR 0 (11) 10(A) , No pain 12:02:37 61 10 100 36.1 152/76(119) NSR 0 (11) 10(A) , No pain 12:06:53 61 11 100 42.9 162/75(112) NSR 0 (11) 10(A) , No pain 12:11:15 58 13 100 23.3 141/71(94) NSR 0 (11) 10(A) , No pain 12:15:27 55 13 100 36.1 147/73(105) NSR 0 (11) 10(A) , No pain 12:19:43 68 13 30.8 118/68(84) NSR 0 (11) 10(A) , No pain 12:23:49 61 18 100 38.3 113/67(77) NSR 0 (11) 10(A) , No pain Medications Time Medication Route Dose Verified Delivered Reason Notes Effectiveness by by 12:06:13 0.9% NaCl I.V. 100 James James Per ml/hr Antwan Moncada physician RN RN 12:06:22 Oxygen etCO2 2 l/min James James for low 02 Nasal Lorigan Lorigan sats cannula RN RN 12:06:32 Heparin Flush added 2 bags Ajmes James used for Bag to Lorigan Lorigan procedure (1000units/500ml field RN RN NS) 12:06:50 Lidocaine 2% added 20ml James James for local to vial Lorigan Lorigan anesthetic field RN RN 12:07:02 Radial Cocktail added 1 James James used for (Verapamil to syringe Lorigan Lorigan procedure 2mg/Nitro field RN RN 400mcg/Heparin 1500units) 12:07:16 Benadryl I.V. 50 mg James Jamse Per Antwan Moncada physician RN RN 12:07:30 Plavix P.O. 300 mg James James for Lorigan Lorigan antiplatelet RN RN therapy 12:08:05 Ativan I.V. 0.5 mg James Ramirez for sedation Antwan Moncada RN RN 12:18:08 Radial Cocktail I.A. 1 James Echols for (Verapamil syringe Antwan Morris MD vasodilation 2mg/Nitro RN 400mcg/Heparin 1500units) Procedure Log Time Note 11:48:06 Arrival Date: 09/15/2019 12:00:00 AM 11:48:09 Admit Source: Other 11:48:38 Insurance Payor : Medicare 11:49:11 Patient Height : 64.96 inches 11:49:15 Patient Weight : 136.69 lbs 11:49:50 Lab Result : BUN 10 mg/dl 11:49:50 Lab Result : Hemoglobin 11.6 g/dl 11:49:50 Lab Result : eGFR NONAFRICAN 63 ml/min 11:49:50 Lab Result : Creatinine 1 mg/dl 11:50:22 Diagnostic Cath Status : Elective 11:51:01 Indication : Chest pain 11:51:15 Procedure Status Urgent Heart Cath (IP). 11:51:45 James Moncada RN sent for patient. Start room use. 11:51:46 Time tracking: Regular hours (M-F 7:00 - 5:00) 11:51:52 Plan of Care:Hemodynamics will remain stable., Cardiac rhythm will remain stable., Comfort level will be maintained., Respiratory function will remain adequate., Patient/ family verbilizes understanding of procedure., Procedure tolerated without complication., Recovers from procedure without complications.. 11:51:59 Patient received from Med II to CCL 2 Alert and oriented. Tansferred to table in Supine position. 11:52:01 Signed procedure consent form obtained from patient. 11:52:03 Warm blankets applied, and laya hugger turned on for patient comfort. 11:52:05 Correct patient and procedure confirmed by team. 11:52:39 H&P Date Dictated: 09/15/2019 Within 30 days and on chart., H&P Addendum completed by physician on day of procedure. (MUST COMPLETE FOR ALL OUTPATIENTS). 11:52:41 Pre-procedure instructions explained to patient. 11:52:50 Family unavailable. 11:52:57 Patient NPO since Midnight. 11:53:28 Patient allergic to Other allergyXoloft, Flu, Morphine 11:53:31 Is the patient allergic to Iodine/contrast media? No. 11:53:32 Was the patient premedicated? Yes 11:53:42 HCG/Urine : completed and on chart, negative 11:53:44 Patient not . Patient has had hysterectomy. 11:53:47 Is patient on blood thinner?No 11:53:49 Patient diabetic? No. 11:53:52 Snore? Yes 11:53:54 Sleep apnea? No 11:54:00 Dentures? Yes in tight 11:54:25 Patient pain scale 3/10 ?. 11:54:38 IV patent on arrival in left forearm with 0.9% NaCl at [facility]. 11:54:41 Lab results completed and on chart. 11:54:44 Right Radial & Right Groin area was prepped with chlora-prep and draped in sterile fashion 11:54:45 Alarms reviewed by R. N. 11:54:46 Sharps counted by scrub and verified by R.N. 11:56:21 ECG and BP/O2 sat monitors applied to patient. 11:56:23 Vital chart was started 11:56:24 Baseline sample Acquired. 11:56:25 Full Disclosure recording started 11:56:34 Use device set Radial Dx or PCI 11:56:37 ACIST Syringe (77369) opened to sterile field. 11:56:38 Medline Cath Pack ([id number]) opened to sterile field. 11:56:38 Bag Decanter (2001S) opened to sterile field. 11:56:39 ACIST Hand Control (24028) opened to sterile field. 11:56:39 ACIST Manifold (88642) opened to sterile field. 11:56:40 Tegaderm 4 x 4 (1626W) opened to sterile field. 11:56:42 MBrace Wrist Support ([id number]) opened to sterile field. 11:56:45 EMERALD Guide Wire (639-409) opened to sterile field. 11:56:46 SHEATH 6FR RAIN ([id number]) opened to sterile field. 11:58:23 Physician arrived 12:01:29 Is patient on blood thinner?Yes 12:01:32 ACC The patient was administered the following blood thiners within the last 24 hours: ACCPlavix 12:02:32 --------ALL STOP TIME OUT------ 12::32 Final Timeout: patient, procedure, and site verified with staff and physician. All members of the team are in agreement. 12:02:36 Right Radial & Right Groin site verified by team. 12:02:39 Fire Safety Assessment: A--An alcohol-based skin anteseptic being used preoperatively., C--Open oxygen or nitrous oxide is being used., D--An ESU, laser, or fiber-optic light is being used. 12:02:43 Physical assessment completed. ASA score P 3 - A patient with severe systemic disease as per Kinza Morris MD. 12:02:46 2) 60-89 Mildly reduced kidney function, and other findings (as for stage 1) point to kidney disease. 12:02:49 Maximum allowable contrast dose (3.7 X eGFR X 0.75)197 ml. 12:02:54 Sedation plan: IV Moderate Sedation Medication:Versed, Fentanyl 12:06:13 0.9% NaCl 100 ml/hr I.V. was administered by aJmes Moncada RN; Per physician; Verbal order read back and verified. 12:06:22 Oxygen 2 l/min etCO2 Nasal cannula was administered by James Moncada RN; for low 02 sats; Verbal order read back and verified. 12:06:32 Heparin Flush Bag (1000units/500ml NS) 2 bags added to field was administered by James Moncada RN; used for procedure; Verbal order read back and verified. 12:06:50 Lidocaine 2% 20ml vial added to field was administered by James Moncada RN; for local anesthetic; Verbal order read back and verified. 12:07:02 Radial Cocktail (Verapamil 2mg/Nitro 400mcg/Heparin 1500units) 1 syringe added to field was administered by James Moncada RN; used for procedure; Verbal order read back and verified. 12:07:16 Benadryl 50 mg I.V. was administered by James Moncada RN; Per physician; Verbal order read back and verified. 12:07:30 Plavix 300 mg P.O. was administered by James Moncada RN; for antiplatelet therapy; Verbal order read back and verified. 12:08:05 Ativan 0.5 mg I.V. was administered by James Moncada RN; for sedation; Verbal order read back and verified. 12:08:45 Procedure started. 12:09:06 Local anesthetic to right radial artery with Lidocaine 2% by Kinza Morris MD.INITIAL ACCESS ONLY 12:16:25 A 6 Fr Short sheath was inserted into the Right Radial artery 12:16:35 J wire advanced. 12:17:00 A DIAGNOSTIC Chitina 110cm 5 Fr catheter (281975) was advanced over the wire and used for Procedure. 12:17:03 LV angiography performed. 12:18:08 Radial Cocktail (Verapamil 2mg/Nitro 400mcg/Heparin 1500units) 1 syringe I.A. was administered by Kinza Morris MD; for vasodilation; Verbal order read back and verified. 12:19:42 LV gram done using WOODS 12:20:34 EF : 65 % 12:20:50 RCA angiography performed. 12:21:01 LCA angiography performed. 12:21:18 Catheter removed. 12:21:24 ZEPHYR REGULAR TR BAND (995183) opened to sterile field. 12:21:53 Sheath removed intact; hemostasis achieved with Mechanical Compression to the Right Radial artery. 12:21:56 Procedure ended.(Physican Out) 12:22:06 Fluoroscopy time 01.20 minutes. 12:22:12 Fluoroscopy dose: 137 mGy 12:22:12 Flurop Dose total: 137 12:22:48 Dose Area Product 30787 mGy/cm. 12:22:56 Contrast amount:Isovue 300 20ml. 12:22:58 Maximum allowable dose exceeded? No. 12:22:59 Sharps counted by scrub and verified by R.N. 12:23:08 [place] band inflated with 10cc of air. 12:23:10 Insertion/operative site no bleeding no hematoma. 12:23:19 Post-op/insertion site Right Radial artery dressed using a 4 x 4 and Tegaderm. 12:23:26 Post Procedure Pulses reassessed and unchanged 12:23:30 Post-procedure physical assessment completed. ASA score P 2 - A patient with mild systemic disease as per Kinza Morris MD. 12:23:34 Post procedure rhythm: sinus rhythm 12:23:36 Estimated blood loss: 10 ml 12:23:38 Post procedure instruction explained to patient.Patient verbalizes understanding. 12:24:37 Procedure type changed to Cath procedure, Diagnostic procedure, LHC, LHC w/Coronaries, Sedation Charges, Moderate Sedation up to 15 minutes 12:24:38 Procedure and supply charges have been captured, reviewed, submitted and are correct. 12:25:01 Procedure Complication : No complications 12:25:03 Vital chart was stopped 12:25:04 [facility] Findings: mild to moderate CAD (<70%) 12:25:07 Operative report dictated upon procedure completion. 12:25:10 Report given to Med II. 12:25:16 Patient transfered to Med II with Stretcher. 12:25:19 Procedure ended. 12:25:19 Full Disclosure recording stopped 12:25:25 End room use (Document Last) Device Usage Item Name Manufacture Quantity Catalog Hospital Part Current Minima l Lot# / Number Charge Number Stock Stock Serial# Code ACIST Acist 1 27134 899006 [id number] [id number] 20 Syringe Medical (43019) Systems Inc Medline Medline 1 [id number] 140798 86268 290516 5 Cath Pack (KLEY33319) Bag Microtek 1 616761 48723 750220 5 Decanter Medical Inc. () ACIST Hand Acist 1 95676 818176 245133 443466 5 Control Medical (12696) Systems Inc ACIST Acist 1 65780 348522 832057 691328 5 Manifold Medical (24453) Systems Inc Tegaderm 4 3M 1 1626W [id number] 708178 188550 5 x 4 (1626W) MBrace Advanced 1 140-0250-00 942661 42893 151243 5 Wrist Vascular Support Dynamics (108453583) EMERALD Cardinal 1 502-455 668583 367231 154267 5 Guide Wire Health (742-455) SHEATH 6FR Cardinal 1 [id number] 975483 5307069 735092 5 [facility] (0213019) DIAGNOSTIC Terumo 1 405013 667478 839432 179486 5 Chitina 110cm 5 Fr catheter (681889) ZEPHYR Cardinal 1 819985 570906 3949873 364968 5 REGULAR TR Health BAND (016554) Signature Audit [place] Stage Time Signature Unsigned Intra-Procedure 09/15/2019 Joann Maguire 12:26:05 PM RT(R) Intra-Procedure 09/15/2019 James 12:27:09 PM Lorigan RN Intra-Procedure 09/15/2019 Kinza Morris MD 12:27:40 PM Signatures Performing Physician : Signature : Kinza Morris MD Date : Time : Monitor : Joann Andrez Signature : RT Date : Time : Nurse : James Lorigan Signature : RN Date : Time : [facility] [address] [place] [address]
--- NOTE | ~2019-09-14 | EC ---
PATIENT:JOSIAS TEE DATE OF SERVICE: 09/14/19 SEX: F MEDICAL RECORD: [id number] DATE OF : 72 LOCATION:D. D.211 AGE OF PATIENT: 49 ADMISSION DATE: 09/14/19 REFERRING PHYSICIAN: INTERPRETING PHYSICIAN: NIRAV ECHOLS MD ECHOCARDIOGRAM REPORT ECHO CHARGES 4 ECHO COMPLETE Date: 09/15/19 CLINICAL DIAGNOSIS: DYSPNEA ECHOCARDIOGRAPHIC MEASUREMENTS (adult normal given) AC root (d.<3.7cm) 2.4 cm LV Septum d (<1.2 cm> 0.6 cm Valve Excursion 1.6 cm LV Septum (systole) 0.9 cm Left Atria (s.<4.0cm> 3.2 cm LVPW d(<1.2cm) 0.6 cm RV (d.<2.3cm) 2.5 cm LVPW (sytole) 1.1 cm LV diastole(<5.6CM) 4.7 cm MV E-F(>70mm/sec) cm LV systole 2.7 cm LVOT Diameter 1.7 cm MV exc.(>10mm) cm Est.ejection fraction (50-75%) % DOPPLER: LVIT cm/sec A 62 cm/sec E 81 cm/sec LA cm/sec RVSP 19.1 mmHg LVOT 83 cm/sec AOP1/2T m/s Asc. Ao 104 cm/sec RVOT 54 cm/sec RA cm/sec PA 70 cm/sec AV Gradient Peak 4.4 mmHg AV Mean 3.1 mmHg AV Area 1.8 cm MV Gradient Peak 4.2 mmHg MV Mean 1.1 mmHg MV Area cm COMMENTS: Automobile Inspector: Joe MENG Power Reactor Supervisor: 4 Dr. Echols TAPE# PACS Pericardial Effusion N DATE OF SERVICE: PROCEDURE: Transthoracic echocardiogram. FINDINGS: 1. Left ventricle is normal size, shape, structure, and function, ejection fraction of 55%. 2. The left atrium is normal. 3. Aortic valve is normal. 4. Trace mitral regurgitation. ECHOCARDIOGRAM REPORT [id number] JOSIAS TEE 5. Tricuspid valve is normal. 6. Right ventricle and right atrium are normal. IMPRESSION: Grossly normal echocardiogram for age. TRANSINT:[id number] Voice Confirmation ID: [id number] DOCUMENT ID: [id number] NIRAV ECHOLS MD CC: [id number] DICTATION DATE: 09/16/19 1039 BREAKFAST BAR ATTENDANT: 09/16/192021 DIS IN 09/15/19 [facility] [address] [place] [id number]
[2019-09-14] MEDS ORDERED: OXYCONTIN10 MG PO (17:40)
[2019-09-14 17:57] VITALS: BP 119/61
[2019-09-14 18:04] LABS: BASOPHILS 0.2 % (0-2); EOSINOPHILS 0.2 % (0-7); HEMATOCRIT 37.7 % (36.0-48.0); HEMOGLOBIN 12.5 g/dL (12-16); IMMATURE GRANULOCYTES 0.4 % (0-5); LYMPHOCYTES 32.2 % (15-50); MCH 31.3 pg (26.0-34.0); MCHC 33.2 g/dL (31.0-37.0); MCV 94.5 fL (80.0-100.0); MEAN PLATELET VOLUME 10.2 fL (7.4-10.4); MONOCYTES 34.6 % (2-11); NEUTROPHILS 32.4 % (40-80); PLATELET COUNT 123 10x3/uL (130-400); RBC 3.99 10x6/uL (4.00-5.40); RDW 13.5 % (11.5-14.5); WBC 4.6 10x3/uL (4.8-10.8)
[2019-09-14 18:11] LABS: CALC OSMOLALITY 269 mosm/kg (275-300); CALCIUM 8.9 mg/dL (8.5-10.1); CARBON DIOXIDE 28.6 mmol/L (21.0-32.0); CHLORIDE - SERUM 100 mmol/L (98-107); CREATININE - SERUM 0.9 mg/dL (0.6-1.3); GLUCOSE 88 mg/dL (74-106); INR 0.96 (0.85-1.17); POTASSIUM - SERUM 3.7 mmol/L (3.5-5.1); PROTIME 12.8 SECONDS (11.6-15.0); SODIUM 136 mmol/L (136-145); UREA NITROGEN 9 mg/dL (7-18); eGFR NON AFRICAN AMERICAN 71 mL/min (90-120)
[2019-09-14 18:12] LABS: APTT 54.6 SECONDS (22.8-39.4)
[2019-09-14 18:19] VITALS: BP 140/40
[2019-09-14 18:28] LABS: ALBUMIN 3.8 g/dL (3.4-5.0); ALKALINE PHOSPHATASE 76 U/L (30-120); ALT (SGPT) 23 U/L (10-68); BILIRUBIN - TOTAL 0.34 mg/dL (0.2-1.3); CKMB 0.7 U/L (0.0-3.6); CREATINE KINASE 129 UL (21-215); MAGNESIUM - SERUM 2.2 mg/dL (1.8-2.4); PROTEIN - SERUM 6.7 g/dL (6.4-8.2); TROPONIN-I < 0.017 ng/mL (0.000-0.060)
--- NOTE | 2019-09-14 19:06 | NUR ---
BEDSIDE REPORT TO LISBET CAVANAUGH AND RAFAEL
[2019-09-14 19:16] VITALS: BP 150/72
[2019-09-15] VITALS: BP 84/44
--- NOTE | 2019-09-15 00:10 | NUR ---
PT ALERT AND ORIENTED. C/O OF CHEST PAIN THAT RADIATES TO HER BACK BETWEEN SHOULDER BLADES. PT HAS PORT ACCESS. USES CANE TO AMBULATE. CALL LIGHT AT BEDSIDE. PT REPORTS NO CONCERNS OR COMPLAINTS AT THIS TIME.
[2019-09-15 04:00] VITALS: BP 96/46
[2019-09-15 05:07] LABS: HEMOGLOBIN 11.6 g/dL (12-16); MCH 30.9 pg (26.0-34.0); MCHC 32.2 g/dL (31.0-37.0); MCV 95.7 fL (80.0-100.0); MEAN PLATELET VOLUME 10.3 fL (7.4-10.4); PLATELET COUNT 114 10x3/uL (130-400); RBC 3.76 10x6/uL (4.00-5.40); RDW 13.7 % (11.5-14.5); WBC 4.1 10x3/uL (4.8-10.8)
[2019-09-15 05:51] LABS: ALKALINE PHOSPHATASE 61 U/L (30-120); BILIRUBIN - TOTAL 0.25 mg/dL (0.2-1.3); CALC OSMOLALITY 274 mosm/kg (275-300); CALCIUM 8.3 mg/dL (8.5-10.1); CARBON DIOXIDE 29.2 mmol/L (21.0-32.0); CHLORIDE - SERUM 102 mmol/L (98-107); GLUCOSE 100 mg/dL (74-106); MAGNESIUM - SERUM 2.1 mg/dL (1.8-2.4); POTASSIUM - SERUM 3.4 mmol/L (3.5-5.1); PROTEIN - SERUM 5.6 g/dL (6.4-8.2); SODIUM 138 mmol/L (136-145); UREA NITROGEN 10 mg/dL (7-18); eGFR NON AFRICAN AMERICAN 63 mL/min (90-120)
[2019-09-15 05:52] LABS: ALT (SGPT) 16 U/L (10-68); TROPONIN-I < 0.017 ng/mL (0.000-0.060)
[2019-09-15 09:00] VITALS: BP 97/54
[2019-09-15 10:30] LABS: LYMPHOCYTES 38 % (15-50); MONOCYTES 16 % (2-11); NEUTROPHILS 44 % (40-80)
[2019-09-15 10:31] LABS: PLATELET ESTIMATE NORMAL
[2019-09-15 13:23] VITALS: Ht 165.1 cm; Wt 62.6 kg
== END 2019-09-15 17:51 | disposition home or self-care (01) ==
LOC: D.ER 17:26 → D.M2 19:11 → OBSVTIME 19:11 → D.M2 09-15 09:24
PROVIDERS: Family Medicine; ADMIT Emergency Medicine; ATTEND Emergency Medicine
DX: I20.0 Unstable angina (principal); R07.9 Chest pain, unspecified; I71.4 Abdominal aortic aneurysm, without rupture; I73.9 Peripheral vascular disease, unspecified; J44.9 Chronic obstructive pulmonary disease, unspecified; F17.203 Nicotine dependence unspecified, with withdrawal; E78.5 Hyperlipidemia, unspecified; I10 Essential (primary) hypertension; M19.90 Unspecified osteoarthritis, unspecified site; G89.29 Other chronic pain; D69.6 Thrombocytopenia, unspecified; H54.40 Blindness, one eye, unspecified eye; D72.819 Decreased white blood cell count, unspecified; F41.8 Other specified anxiety disorders; M79.7 Fibromyalgia; R63.4 Abnormal weight loss

== ENCOUNTER 2020-05-06 21:09 | Emergency (ER) | payer MEDICARE, MEDICAID ==
[~2020-05-06] VITALS: Ht 165.1 cm; Wt 61.4 kg
[~2020-05-06 21:09] MED LIST changes: +OXYCONTIN10 MG PO
[2020-05-06 21:25] VITALS: Ht 165.1 cm; Wt 61.4 kg
[2020-05-06 22:08] LABS: CALC OSMOLALITY 257 mosm/kg (275-300); CALCIUM 8.7 mg/dL (8.5-10.1); CARBON DIOXIDE 25.4 mmol/L (21.0-32.0); CHLORIDE - SERUM 94 mmol/L (98-107); CREATININE - SERUM 0.9 mg/dL (0.6-1.3); GLUCOSE 122 mg/dL (74-106); POTASSIUM - SERUM 3.4 mmol/L (3.5-5.1); SODIUM 129 mmol/L (136-145); UREA NITROGEN 7 mg/dL (7-18); eGFR NON AFRICAN AMERICAN 70 mL/min (90-120)
[2020-05-06 22:29] LABS: BILIRUBIN NEGATIVE (NEGATIVE); KETONE NEGATIVE (NEGATIVE); NITRITE NEGATIVE (NEGATIVE); UROBILINOGEN NORMAL mg/dL (< 2)
[2020-05-06 22:30] LABS: BACTERIA FEW HPF (NONE SEEN); WHITE CELLS - URINE 0-5 HPF (0-4)
[2020-05-06 22:31] LABS: UDS - AMPHET NEGATIVE QUAL (NEGATIVE); UDS - BARB NEGATIVE QUAL (NEGATIVE); UDS - BENZO NEGATIVE QUAL (NEGATIVE); UDS - COCAINE NEGATIVE QUAL (NEGATIVE); UDS - OPIATE POSITIVE QUAL (NEGATIVE); UDS - PCP NEGATIVE QUAL (NEGATIVE); UDS - THC NEGATIVE QUAL (NEGATIVE)
[2020-05-06] MEDS ORDERED: MACROBID100 MG PO (22:47)
[2020-05-06 23:23] LABS: INR 1.1 (0.85-1.17); PROTIME 13.1 SECONDS (11.6-15.0)
[2020-05-06 23:25] LABS: APTT 141.9 SECONDS (22.8-39.4)
[2020-05-06 23:41] LABS: ALBUMIN 3.4 g/dL (3.4-5.0); ALKALINE PHOSPHATASE 60 U/L (30-120); ALT (SGPT) 20 U/L (10-68); BILIRUBIN - TOTAL 0.12 mg/dL (0.2-1.3); CKMB 0.7 U/L (0.0-3.6); CREATINE KINASE 109 UL (21-215); PROTEIN - SERUM 6.5 g/dL (6.4-8.2); THYROID STIMULATING HORMONE 2.71 uIU/mL (0.36-3.74)
[2020-05-06 23:44] LABS: TROPONIN-I < 0.017 ng/mL (0.000-0.060)
[2020-05-07 00:21] LABS: BASOPHILS 0.2 % (0-2); EOSINOPHILS 0.2 % (0-7); HEMATOCRIT 37.3 % (36.0-48.0); HEMOGLOBIN 12.5 g/dL (12-16); IMMATURE GRANULOCYTES 0.4 % (0-5); LYMPHOCYTE ABS# 1.27 10x3/uL (1.18-3.74); LYMPHOCYTES 23.4 % (15-50); MCH 30.6 pg (26.0-34.0); MCHC 33.5 g/dL (31.0-37.0); MCV 91.2 fL (80.0-100.0); MONOCYTES 37.5 % (2-11); NEUTROPHIL ABS# 2.08 10x3/uL (1.56-6.13); NEUTROPHILS 38.3 % (40-80); RBC 4.09 10x6/uL (4.00-5.40); RDW 13.1 % (11.5-14.5); WBC 5.4 10x3/uL (4.8-10.8)
[2020-05-07 00:22] LABS: PLATELET COUNT 148 10x3/uL (130-400)
[2020-05-07 00:40] VITALS: BP 106/66
== END 2020-05-07 00:41 | disposition home or self-care (01) ==
LOC: D.ER 21:09
PROVIDERS: Family Medicine
DX: N39.0 Urinary tract infection, site not specified (principal); M54.10 Radiculopathy, site unspecified; I10 Essential (primary) hypertension; R47.81 Slurred speech; M54.2 Cervicalgia